=== PATIENT | female | born 1965 | race Caucasian/White ===

== ENCOUNTER 2021-02-13 08:34 | Day surgery (SDC) | payer OTHER ==
[~2021-02-13] VITALS: Ht 152.4 cm; Wt 105.7 kg
[2021-02-13] MEDS ORDERED: LIDOCAINE 2% 100 MG/5 ML UJET TP ONE (12:26)
[2021-02-13] MEDS ORDERED: fentaNYL citrate 0.05 MG/ML VIAL ONE (12:26)
[2021-02-13] MEDS ORDERED: fentaNYL citrate 0.05 MG/ML VIAL IVP ONE (13:40)
== END 2021-02-13 13:55 | disposition home or self-care (01) ==
LOC: MDS 08:34 → MMU 08:34 → MDS 13:55
PROVIDERS: ATTEND Internal Medicine Gastroenterology
DX: Z12.11 Encounter for screening for malignant neoplasm of colon (principal); K57.30 Diverticulosis of large intestine without perforation or abscess without bleeding; E66.01 Morbid (severe) obesity due to excess calories; R14.0 Abdominal distension (gaseous); Z68.42 Body mass index [BMI] 45.0-49.9, adult; Z79.899 Other long term (current) drug therapy
CPT/HCPCS: 45378; J3010